=== PATIENT | female | born 1990 | race Caucasian/White ===

== ENCOUNTER 2019-07-15 22:23 | Emergency (ER) | payer OTHER ==
[~2019-07-15] VITALS: Ht 165.1 cm; Wt 96.5 kg
[~2019-07-15 22:23] MED LIST: IBUP-1542 PO
[2019-07-15 22:25] VITALS: BP 141/66; PULSE 70; RESP 16; Ht 165.1 cm; Wt 96.5 kg
[2019-07-15] MEDS ORDERED: KETOROLAC 30 MG INJ IM STA (23:32)
== END 2019-07-16 00:47 | disposition home or self-care (01) ==
LOC: FTE 22:23
DX: S93.431A Sprain of tibiofibular ligament of right ankle, initial encounter (principal); W18.39XA Other fall on same level, initial encounter; Y92.9 Unspecified place or not applicable
CPT/HCPCS: 73610; 81025; 96372; J1885; Z7502